=== PATIENT | male | born 1965 | race Caucasian/White ===

== ENCOUNTER 2023-04-11 15:00 | Outpatient (REF) | payer MEDICAID, SELFPAY ==
[2023-04-11 16:14] LABS: MANUAL DIFF FLAG NO
[2023-04-11 16:27] LABS: Estimated Average Glucose 97 mg/dL
[2023-04-11 16:30] LABS: Basophils Percent Auto 0.4 % (0-2); Eosinophils Absolute Auto 0.1 X10*3/uL (0.0-0.4); Eosinophils Percent Auto 1.3 % (0-4); Hematocrit 48.7 % (42.0-52.0); Hemoglobin 16.6 g/dl (14.0-18.0); Imm Gran Abs Auto 0.01 X10*3/uL (0.00-0.03); Imm Gran Pct Auto 0.1 % (0.0-0.4); Lymphocytes Absolute Auto 1.8 X10*3/uL (1.2-4.9); Lymphocytes Percent Auto 24.6 % (20-40); Mean Corpuscular HGB Conc 34.1 g/dl (31.0-36.0); Mean Corpuscular Hemoglobin 30.5 pg (27.0-33.0); Mean Corpuscular Volume 89.5 fL (80.0-98.0); Mean Platelet Volume 10.4 fL (9.4-12.4); Monocytes Absolute Auto 0.6 X10*3/uL (0.1-1.2); Monocytes Percent Auto 7.8 % (2-11); Neutrophils Absolute Auto 4.7 x10*3/uL (2.0-8.3); Neutrophils Percent Auto 65.8 % (45-73); Platelet Count 239 X10*3/uL (160-400); Red Blood Count 5.44 X10*6/uL (4.60-5.80); Red Cell Distribution Width 12.4 % (11.0-16.0); White Blood Count 7.1 X10*3/uL (4.8-10.8)
[2023-04-11 16:41] LABS: Alanine Aminotransferase 44 U/L (0-40); Albumin Level 4.6 g/dL (3.5-5.0); Alkaline Phosphatase 83 U/L (39-117); Anion Gap 13 (12-20); Aspartate Amino Transferase 24 U/L (5-37); Bilirubin Direct 0.2 mg/dL (0.0-0.5); Bilirubin Total 0.8 mg/dL (0.0-1.0); Blood Urea Nitrogen 19 mg/dL (9-16); Calcium 9.9 mg/dL (8.4-10.2); Carbon Dioxide 26 mmol/L (22-29); Chloride 107 mmol/L (96-108); Cholesterol 227 mg/dL (<200); Estimated Glomerular Filt Rate > 60; Glucose Random 100 mg/dL (60-115); HDL Cholesterol 40 mg/dL (>40); LDL Cholesterol Calculated 140 mg/dL (<100); Potassium 4.1 mmol/L (3.3-5.1); Sodium 142 mmol/L (135-145); Total Protein 7.5 g/dL (6.5-8.0); Triglycerides 236 mg/dL (<150)
[2023-04-12 08:12] LABS: HIV AB/AG Nonreactive (Nonreactive); HIV Num 1 0.05 S/CO (0.00-0.99); ~HepC Num1 0.04 S/CO (0.00-0.79); ~Hepatitis C Antibody Nonreactive (Nonreactive)
== END 2023-04-11 15:01 | disposition home or self-care (01) ==
LOC: HO.HHCL 15:00
PROVIDERS: Visit Provider Internal Medicine
DX: Z11.4 Encounter for screening for human immunodeficiency virus [HIV] (principal); I10 Essential (primary) hypertension; I25.10 Atherosclerotic heart disease of native coronary artery without angina pectoris
CPT/HCPCS: 36415; 80048; 80061; 80076; 83036; 85025; 86803; 87389

== ENCOUNTER 2023-04-12 10:31 | Outpatient (REF) | payer MEDICAID, SELFPAY ==
--- NOTE | ~2023-04-12 | XR_ITS ---
STUDY: Left hip, right knee INDICATION: Chronic left hip and right knee pain COMPARISON: None TECHNIQUE: 3 view left hip, 5 view right knee FINDINGS: Left hip: Advanced osteoarthritic changes identified left hip with [id number] appearance to the joint space, sclerosis, subchondral cysts, osteophytes and femoral head remodeling. Moderately severe right hip joint narrowing. No fracture or dislocation. Right knee: Tricompartment spurring, moderately severe medial, mild lateral knee and mild patellofemoral narrowings. No fracture, dislocation or joint effusion. XR/XR hip LT min 2V IMPRESSION: Advanced osteoarthritis left hip, moderately severe osteoarthritis right hip and right knee.
--- NOTE | ~2023-04-12 | XR_ITS ---
STUDY: Left hip, right knee INDICATION: Chronic left hip and right knee pain COMPARISON: None TECHNIQUE: 3 view left hip, 5 view right knee FINDINGS: Left hip: Advanced osteoarthritic changes identified left hip with awsq-[id number] appearance to the joint space, sclerosis, subchondral cysts, osteophytes and femoral head remodeling. Moderately severe right hip joint narrowing. No fracture or dislocation. Right knee: Tricompartment spurring, moderately severe medial, mild lateral knee and mild patellofemoral narrowings. No fracture, dislocation or joint effusion. XR/XR knee RT 4V IMPRESSION: Advanced osteoarthritis left hip, moderately severe osteoarthritis right hip and right knee.
== END 2023-04-12 10:32 | disposition home or self-care (01) ==
LOC: HO.HHCX 10:31
PROVIDERS: Visit Provider Internal Medicine
DX: M25.552 Pain in left hip (principal); M25.561 Pain in right knee; G89.29 Other chronic pain
CPT/HCPCS: 73502; 73564

== ENCOUNTER 2024-02-26 14:50 | Outpatient (REF) | payer MEDICAID, SELFPAY ==
[2024-02-26 16:42] LABS: Estimated Average Glucose 97 mg/dL; Hemoglobin A1C 118.3121 umol/L; Total Hemoglobin (HGBA1C) 3821.0084 umol/L
[2024-02-26 16:46] LABS: Alanine Aminotransferase 29 U/L (0-40); Albumin Level 4.3 g/dL (3.5-5.0); Alkaline Phosphatase 80 U/L (39-117); Anion Gap 13 (12-20); Aspartate Amino Transferase 22 U/L (5-37); Bilirubin Total 0.8 mg/dL (0.0-1.0); Blood Urea Nitrogen 16 mg/dL (9-16); Calcium 10.1 mg/dL (8.4-10.2); Carbon Dioxide 26 mmol/L (22-29); Chloride 107 mmol/L (96-108); Estimated Glomerular Filt Rate > 60; Glucose Random 130 mg/dL (60-115); Potassium 3.5 mmol/L (3.3-5.1); Sodium 142 mmol/L (135-145); Total Protein 7.3 g/dL (6.5-8.0)
== END 2024-02-26 14:51 | disposition home or self-care (01) ==
LOC: HO.HHCL 14:50
PROVIDERS: Visit Provider Internal Medicine
DX: I10 Essential (primary) hypertension (principal)
CPT/HCPCS: 36415; 80053; 83036

== ENCOUNTER 2024-07-06 09:13 | Outpatient (AMB) | payer MEDICAID, SELFPAY ==
--- NOTE | 2024-07-06 09:24 | MHC.OFFVIS ---
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 Hr Leader Required: Yes Hr Leader Services: Hr Leader Offered & Declined Hr Leader Name: will interpret Accompanied by: Spouse Allergies No Known Allergies [No Known Allergies*] Allergy (Unverified 02/18/20 19:35) none Allergy (Unknown, Uncoded 06/25/18 00:00) Medication List - Last Reconciled 07/06/24 by Timoteo Garza MD albuterol sulfate 90 mcg/actuation (Ventolin HFA) 2 puffs inhalation Q6H PRN aspirin (Adult Low Dose Aspirin) 81 mg PO DAILY atorvastatin 40 mg PO QPM clopidogrel (Plavix) 75 mg PO DAILY losartan 100 mg PO DAILY metoprolol succinate ER 50 mg PO DAILY HPI Comments Details: Iziaah is here for cardiac evaluation. According to a stent card brought by the patient, RCA stent from October of 2020. According to patient and family, he it was done for heart attack in [place]. Unclear, NSTEMI versus STEMI. He has not seen any medical transcription radiology after that. He continues to be on dual antiplatelet therapy. Otherwise, on beta-blockers, blood pressure medicines and statins. Within limits of his activity, generally feels okay. No clear-cut angina. He does feel some heart fluttering every so often. He states that he does travel back and forth between [place] and [place]. He would like to get checked out further. [facility] Medical History (Updated 07/06/24 @ 10:17 by Timoteo Garza MD) Atherosclerotic cardiovascular disease Surgical History (Updated 07/06/24 @ 09:30 by Mireya Kunz CMA) History of cardiac cath Family History (Updated 07/06/24 @ 09:32 by Mireya Kunz CMA) Father Pacemaker DM2 (diabetes mellitus, type 2) HTN (hypertension) Renal failure Paternal Grandmother HTN (hypertension) Mother Skin cancer Social History (Updated 07/06/24 @ 09:32 by Mireya Kunz CMA) Alcohol intake: current Alcohol intake frequency: holidays/special occasions only Patient Tobacco Use Status: Former Tobacco user Review of Systems Const Denies chills, Denies daytime sleepiness, Denies fatigue, Denies fever(s), Denies poor appetite, Denies snoring, Denies stops breathing during sleep, Denies weakness, Denies weight gain and Denies weight loss Eyes Denies loss of vision ENT Denies dizziness and Denies hearing loss Card Denies chest pain, Denies irregular heart rhythm, Denies claudication, Denies leg edema, Denies lightheadedness, Denies palpitations, Denies dyspnea on exertion and Denies orthopnea Resp Denies cough, Denies excessive phlegm production, Denies dyspnea on exertion, Denies snoring and Denies wheezing GI Denies abdominal pain, Denies hematochezia, Denies change in bowel habits, Denies nausea and Denies vomiting Denies dysuria and Denies urinary frequency Musc Denies arthralgias, Denies muscle weakness, Denies numbness and Denies other Skin/Breast Denies nail changes and Denies rash Neuro Denies Abnormal speech present, Denies dizziness, Denies loss of vision, Denies memory loss, Denies numbness and Denies weakness Psych Denies depression and Denies memory loss Endo Denies fatigue and Denies palpitations Vega/Lymph Denies easy bruising Aller/Immun Denies wheezing Physical Exam Vital Signs: Last Vital Signs Pulse 78 07/06/24 09:26 BP 158/60 H 07/06/24 09:26 BMI result Body Mass Index 30.1 Const General: comfortable and no acute distress Orientation/consciousness: patient oriented x3 HEENT Other: Unremarkable Head: Yes normal to inspection Neck Neck: Yes normal visual inspection Chest Chest palpation & inspection: normal inspection of the chest Resp Auscultation: clear to auscultation bilaterally Cardio Palpation: normal PMI Heart sounds: S1 normal heart sound present, S2 normal heart sound present, no gallops, no murmurs and no rubs GI Palpation (GI): Soft to palpation Back/Spine/Pelvis Other: unremarkable Skin General skin exam: no rashes or lesions noted Neuro General: patient oriented x3 Speech: No Abnormal speech present Extrem General: Yes normal to inspection Psych Mental Status: mental status grossly normal Office Procedures EKG Details: EKG with underlying sinus rhythm at 78/Min; cannot exclude old inferior infarct; [place] [address]-[id number], Complete Assessment & Plan Assessment & Plan (1) Atherosclerotic cardiovascular disease: Code(s): I25.10 - Atherosclerotic heart disease of [place] coronary artery without angina pectoris Category: Medical Plan: Per patient information, RCA stent from 2020. He is still on dual antiplatelet therapy. Unknown coronary anatomy. Plan on getting an echocardiogram/exercise stress perfusion imaging study for further evaluation. Most likely should be able to stop Plavix after he gets somewhat information. (2) Primary hypertension: Code(s): I10 - Essential (primary) hypertension Category: Medical Plan: Today's blood pressure seems high. Currently on metoprolol/losartan. May need more medications in the future. (3) Hyperlipidemia, unspecified: Code(s): E78.5 - Hyperlipidemia, unspecified Category: Medical Plan: Cholesterol is not well controlled. Currently on atorvastatin 40 mg daily. According to patient, dose was previously increased to 80 mg daily by PCP but he could not tolerate it. Overall, does not seem well controlled. Plan Patient states that he travels back and forth [place] and [facility]. Hoping he will keep his follow-up appointments, then meds will need to be optimized in due course. Discussed with significant other. Follow-up after the testing. Orders: Orders CA echo transthoracic complete Today I25.10 - Atherosclerotic heart disease of [place] coronary artery without angina pectoris NM cardiolite stress test Today I25.10 - Atherosclerotic heart disease of [place] coronary artery without angina pectoris, R07.2 - Precordial pain Lipid Panel Today E78.5 - Hyperlipidemia, unspecified, I25.10 - Atherosclerotic heart disease of [place] coronary artery without angina pectoris Liver Panel Today I25.10 - Atherosclerotic heart disease of [place] coronary artery without angina pectoris CA stress test Today I25.10 - Atherosclerotic heart disease of [place] coronary artery without angina pectoris, R07.2 - Precordial pain Coding Level of Care Code New Pt Level 4 (72954) Diagnoses Atherosclerotic cardiovascular disease I25.10 Primary hypertension I10 Hyperlipidemia, unspecified E78.5 CPT Codes EKG - CPT: 59793-[id number], Complete ([id number])
[2024-07-06 09:26] VITALS: BP 158/60; PULSE 78; BMI 30.1
--- OUTSIDE RECORDS SUMMARY | 2024-07-06 09:31 | XMS_ITS | Clinical Summary ---
Author Organization [employer] Address [address] [place] [address] Care Team Providers Care Ginger Farmer Name Role Phone Gilma Will MD Primary Care Provide r Allergies No known active allergies Medications albuterol (2.5 MG/3ML) 0.083% nebulizer solution Take 3 mL (2.5 mg) by nebulization every 6 (six) hours if needed for wheezing. 75 mL 3 Active aspirin 81 MG chewable tabletIndication s:Coronary artery disease involving [place] coronary artery of [place] heart without angina pectoris Chew 1 tablet (81 mg) Once per day. 30 tablet 4 025 Active albuterol 108 (90 Base) MCG/ACT inhalerIndicatio ns:Mild intermittent asthma without complication Inhale 2 puffs every 4 (four) hours if needed for wheezing. 18 g 4 025 Active fluticasone furoate (Arnuity Ellipta) 100 MCG/ACT inhalerIndicatio ns:Mild intermittent asthma without complication Inhale 1 puff Once per day. Rinse mouth with water after use to reduce aftertaste and incidence of candidiasis. Do not swallow. 30 each 3 4 Active metoprolol succinate XL (Toprol XL) 50 MG 24 hr tabletIndication s:Coronary artery disease involving [place] coronary artery of [place] heart without angina pectoris,Primary hypertension Take 1 tablet (50 mg) by mouth Once per day. Do not crush or chew. 30 tablet 4 025 Active losartan (Cozaar) 50 MG tabletIndication s:Coronary artery disease involving [place] coronary artery of [place] heart without angina pectoris,Primary hypertension Take 1 tablet (50 mg) by mouth Once per day. 30 tablet 4 025 Active atorvastatin (Lipitor) 80 MG tabletIndication s:Coronary artery disease involving [place] coronary artery of [place] heart without angina pectoris Take 1 tablet (80 mg) by mouth Once per day. 30 tablet 4 025 Active Active Problems Problem Noted Date Diagnosed Date Primary osteoarthritis of left hip 02/26/2024 Primary osteoarthritis of right knee 02/26/2024 Mild intermittent asthma without complication Primary hypertension 04/11/2023 Assessment & Plan (03/03/2024 1:38 PM EDT): Maintenance: BMP: ordered Lipid Panel: ordered ASCVD Risk: risk is now 10.2 he is on atorvastatin 80g daily, ASA 81mg daily - Aerobic exercise to reduce BP. Initial goal of 30 min walk 3-5x/week. Increase as tolerated. - low-sodium diet (goal: <2g/day) and heart healthy diet such as DASH to reduce BP and prevent ASCVD. - Home BP monitoring 1-2 x day with goal of <140/90. - Seek immediate medical attention for chest pain, palpitations, SOB, syncope, or sudden changes in mental status. - Do not change or discontinue current prescriptions without first consulting health care provider Assessment & Plan (04/11/2023 4:36 PM EST): Maintenance: BMP: ordered Lipid Panel: ordered ASCVD Risk: Calculate pending updated labs -I will prescribe losartan 50mg daily c/w metoprolol 50mg daily - Aerobic exercise to reduce BP. Initial goal of 30 min walk 3-5x/week. Increase as tolerated. - low-sodium diet (goal: <2g/day) and heart healthy diet such as DASH to reduce BP and prevent ASCVD. - Home BP monitoring 1-2 x day with goal of <140/90. - Seek immediate medical attention for chest pain, palpitations, SOB, syncope, or sudden changes in mental status. - Do not change or discontinue current prescriptions without first consulting health care provider Coronary artery disease invo lving [place] coronary artery of [place] heart without angina pectoris 04/11/2023 Chronic pain of right knee 04/11/2023 Assessment & Plan (04/11/2023 4:37 PM EST): Patient will be contacted with results Left hip pain 04/11/2023 Resolved Problems Problem Noted Date Diagnosed Date Resolved Date Right hip pain 04/11/2023 04/11/2023 Social History Tobacco Use Types Packs/Day Years Used Date Smoking Tobacco: Never Passive Smoke Exposure: Never Smokeless Tobacco: Never Tobacco Cessation:Counseling Given: Not Answered Depression Answer Date Recorded Patient Health Questionnaire-9 Score 0 04/11/2023 Patient Health Questionnaire-9 Score 0 04/11/2023 Last PHQ-9: Questionnaire Data Not on file 1 06/11/2022 Housing Stability Answer Date Recorded What is your housing situation today? I do not have housing (Staying with others, in a hotel, in a [place] [facility], living outside on the street, on a beach, in a car, or in a park 11/12/[address] you li ve. Do you have problems with any of the following? None of the above 11/12/2023 Food Insecurity Answer Date Recorded Within the past 12 months, y ou worried that your food would run out before you got money to buy more: Never True 04/02/2023 Within the past 12 months,th e food you bought just didn't last and you didn't have enough money to get more: Never True Transportation Answer Date Recorded In the past 12 months, has l ack of transportation kept you from medical appts, meetings, work or from getting things needed for daily living? No 04/02/2023 Utilities Answer Date Recorded In the past 12 months, has t he electric, gas, oil or water company threatened to shut off services in your home? No 04/02/2023 Depression Answer Date Recorded Patient Health Questionnaire-2 Score 0 04/11/2023 Sex and Gender Information Value Date Recorded Sex Assigned at Male 04/02/2022 10:34 AM EDT Legal Sex Male 10:34 AM EDT Gender Identity Male 04/02/2022 10:34 AM EDT Sexual Orientation Straight 04/02/2022 10 :34 AM EDT Last Filed Vital Signs Vital Sign Reading Time Taken Comments Blood Pressure 120/82 02/26/2024 1:55 PM EDT Pulse 72 02/26/2024 1:55 PM EDT Temperature 36.3 ??C (97.3 ??F) 02/26/2024 1:55 PM ED T Respiratory Rate 16 02/26/2024 1:55 PM EDT Oxygen Saturation 96% 04/11/2023 1:26 PM EST Inhaled Oxygen Concentration - - Weight 106 kg (233 lb 6.4 oz) 02/26/2024 1:55 PM EDT Height 188 cm (6' 2 ) 02/26/2024 1:55 PM EDT Body Mass Index 29.97 02/26/2024 1:55 PM EDT Plan of Treatment Health Maintenance Due Date Last Done Comments CT Colonography 1966 Colonoscopy 1966 Colorectal Cancer Screening 1966 FIT DNA/Cologuard 1966 FIT 1966 FOBT 1966 Sigmoidoscopy 1966 Alcohol/Substance Use Screening 1978 DTaP/Tdap/Td Vaccines (1 - Tdap) 1985 Hepatitis B Vaccines (1 of 3 - 19+ 3-dose series) 1985 Pneumococcal Vaccine: 50+ Years (1 of 2 - PCV) 1985 Zoster Vaccines (1 of 2) 02/10/2016 COVID-19 Vaccine ( - 2023-2 5 season) 2024 Influenza Vaccine (#1) 2024 Depression Screening 04/11/2024 04/11/2023, 04/11/2023 SDOH Screening 11/11/2024 11/12/2023 Tobacco Screening 02/25/2025 02/26/2024 Lipid Panel 04/11/2028 04/11/2023 RSV Patients and Patients Aged 60 years or older (1 - 1-dose 75+ series) 2041 HIV Screening Completed 04/11/2023 Hepatitis C Screening Completed 04/11/2023 HIB Vaccines Aged Out No longer eligi ble based on patient's age to complete this topic HPV Vaccines Aged Out No longer eligi ble based on patient's age to complete this topic Hepatitis A Vaccines Aged Out No long er eligible based on patient's age to complete this topic IPV Vaccines Aged Out No longer eligi ble based on patient's age to complete this topic Meningococcal Vaccine Aged Out No gin kaykay eligible based on patient's age to complete this topic RSV under 20 months Aged Out No longe r eligible based on patient's age to complete this topic Rotavirus Vaccines Aged Out No longer eligible based on patient's age to complete this topic Procedures Procedure Name Priority Date/Time Associated Diagnosis Comments HEPATITIS C AB W/REFL TO HCV RNA, QN, PCR Routine 04/11/2023 3:00 PM EST Primary hypertension HIV 1/2 ANTIGEN/ANTIBODY, FOURTH GENERATION W/RFL Routine 04/11/2023 3:00 PM EST Primary hypertension LIPID PANEL, STANDARD Routine 04/11/2023 3:00 PM EST Primary hypertension from Last 3 Months or Most Recently Relevant to Health Maintenance Results * Hepatitis C Antibody with Reflex to HCV, RNA, Quantitative, Real-Time PCR (04/11/2023 3:00 PM EST) Hepatitis C Antibody Nonreactive Nonreactive [facility] Comment:Antibodies to HCV no t detected; does not exclude early acuteHCV infection. Blood Venous blood specimen / Unknown 04/11/2023 3:00 PM EST 04/11/2023 4:12 PM EST us Gilma Wang MD LAB BLOOD ORDERABLES Final Result [facility] [address] [place] [phone] * HIV-1/2 Antigen and Antibodies, Fourth Generation, with Reflexes (04/11/2023 3:00 PM EST) HIV AB/AG Nonreactive Nonreactive [facility] Comment:HIV-1 p24 Ag and/or HIV-1/HIV-2 Ab not detected.A test result that is nonreactive does not exclude thepossibility of exposure to or infection with HIV-1 and/orHIV-2. Nonreactive results in this assay for individualswith prior exposure to HIV-1 and/or HIV-2 may be due toantigen and antibody levels that are below the limit ofdetection of this assay.The [employer] HIV Ag/Ab Combo assay result andsupplemental assay results should be interpreted inconjunction with the patient's clinical presentation,history and other laboratory results. If the results areinconsistent with clinical evidence, additional testing issuggested to confirm the result. Blood Venous blood specimen / Unknown 04/11/2023 3:00 PM EST 04/11/2023 4:12 PM EST us Gilma Wang MD LAB BLOOD ORDERABLES Final Result [facility] [address] [place] [phone] * (ABNORMAL) Lipid Panel, Standard (04/11/2023 3:00 PM EST) Triglycerides 236(H) <150 mg/dL [facility] Comment:Desirable Triglyceri de: less than 150 mg/dLBorderline High Triglyceride 150-199 mg/dLHigh Triglyceride: 200-499 mg/dLVery High Triglyceride: greater than or equal to 5OO mg/dL Cholesterol 227(H) <200 mg/dL [facility] Comment:Desirable Cholestero l: less than 200 mg/dLBorderline High Cholesterol: 200-239 mg/dLHigh Cholesterol: greater than 239 mg/dL LDL Cholesterol Calculated 140(H) <100 mg/dL [facility] Comment:Desirable LDL: less than 100 mg/dLNear Optimal/Above Optimal LDL: 110- 129 mg/dLBorderline High LDL: 130-159 mg/dLHigh LDL: 160-189 mg/dLVery High LDL: greater than or equal to 190 mg/dL HDL Cholesterol 40(L) >40 mg/dL [facility] Comment:Desirable HDL: great er than 40 mg/dL Note: This HDL assay may give artificially low results in patients with liver disease. Blood Venous blood specimen / Unknown 04/11/2023 3:00 PM EST 04/11/2023 4:12 PM EST Gilma Wang MD LAB BLOOD ORDERABLES Final Result [facility] [address] [place] [address] [phone] from Last 3 Months or Most Recently Relevant to Health Maintenance Insurance [facility] C3 Care Teams Ginger Farmer Relationship Specialty Start Date End Date Gilma Will MD [address] [place] [phone] PCP - General Internal Medicine 03/07/23
--- OUTSIDE RECORDS SUMMARY | 2024-07-06 09:31 | XMS_ITS | Encounter Summary ---
Author Organization [facility] [facility] Address [address] [place] [address] [address] [place] [address] Care Team Providers Care Window Glazier Helper Name Role Phone Gilma Will MD Primary Care Provide r Reason for Visit * Reason Onset Date Comments New Patient 01/23/2023 Encounter Details Date Type Department Care Team ([facility] st Contact Info) Description 01/23/2023 Telephone [facility] [address] [place] [address] Juancarlos Yu MD [address] [place] [address] New Patient Social History Tobacco Use Types Packs/Day Years Used Date Smoking Tobacco: Never Assessed Sex and Gender Information Value Date Recorded Sex Assigned at Male 04/02/2022 10:34 AM EDT Legal Sex Male 10:34 AM EDT Gender Identity Male 04/02/2022 10:34 AM EDT Sexual Orientation Straight 04/02/2022 10 :34 AM EDT documented as of this encounter Miscellaneous Notes * Telephone Encounter - Aneta Barr - 01/23/2023 3:18 PM EDT Pt has been transfer 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 EFFECTIVE SINCE 01/23/2023 documented in this encounter Plan of Treatment Not on file documented as of this encounter Visit Diagnoses Not on filedocumented in this encounter Care Teams Window Glazier Helper Relationship Specialty Start Date End Date Gilma Will MD [address] [place] [phone] PCP - General Internal Medicine 03/07/23 documented as of this encounter
== END 2024-07-06 10:01 | disposition home or self-care (01) ==
PROVIDERS: PCP Internal Medicine; Visit Provider Internal Medicine
DX: I25.10 Atherosclerotic heart disease of native coronary artery without angina pectoris (principal); I10 Essential (primary) hypertension; E78.5 Hyperlipidemia, unspecified
CPT/HCPCS: 93010; 99204

== ENCOUNTER → 2024-07-06 09:13 | Outpatient (BNVA) | payer MEDICAID, SELFPAY | PROVIDERS: PCP Internal Medicine; Visit Provider Internal Medicine | DX: I25.10 Atherosclerotic heart disease of native coronary artery without angina pectoris (principal); I10 Essential (primary) hypertension; E78.5 Hyperlipidemia, unspecified; R94.31 Abnormal electrocardiogram [ECG] [EKG] | CPT/HCPCS: 93005; 99202 ==

== ENCOUNTER 2024-07-08 12:56 | Outpatient (REF) | payer MEDICAID, SELFPAY ==
--- NOTE | ~2024-07-08 | XR_ITS ---
EXAMINATION: XR HIP, LEFT CLINICAL INFORMATION: M25.552 - Pain in left hip COMPARISON: None available. TECHNIQUE: Two views of the left hip. AP pelvis one view FINDINGS: AP pelvis: There is severe loss of left hip joint space and moderate loss of right hip joint space. The SI joints are symmetrical and normal. No bony abnormality seen involving the pelvis. Left hip: There is severe loss of left hip joint space with mild deformity of left humeral head and periapical spurring. There are subchondral cystic changes along the acetabulum and the femoral head. No visible acute fracture or dislocation seen. The soft tissues are normal. XR/XR hip LT min 2V IMPRESSION: Severe degenerative changes left hip joint. No visible acute fracture or dislocation seen. Electronically signed by: Bennie Nuno MD 08/04/2024 12:17 PM SAD[facility] WEBBER
--- OUTSIDE RECORDS SUMMARY | 2024-07-08 14:15 | XMS_ITS | Clinical Summary ---
Author Organization [employer] Address [address] [facility] 7t [place] [address] Care Team Providers Care Signal Integrity Engineer Name Role Phone Gilma Will MD Primary Care Provide r Allergies No known active allergies Medications albuterol (2.5 MG/3ML) 0.083% nebulizer solution Take 3 mL (2.5 mg) by nebulization every 6 (six) hours if needed for wheezing. 75 mL 3 Active aspirin 81 MG chewable tabletIndication s:Coronary artery disease involving [place] coronary artery of [place] heart without angina pectoris Chew 1 tablet [...] 24 hr tabletIndication s:Coronary artery disease involving [place] coronary artery of [place] heart without angina pectoris,Primary hypertension Take 1 tablet (50 mg) by mouth Once per day. Do not crush or chew. 30 tablet 4 025 Active losartan (Cozaar) 50 MG tabletIndication s:Coronary artery disease involving [place] coronary artery of [place] heart without angina pectoris,Primary hypertension Take 1 tablet (50 mg) by mouth Once per day. 30 tablet 4 025 Active atorvastatin (Lipitor) 80 MG tabletIndication s:Coronary artery disease involving [place] coronary artery of [place] heart without angina pectoris Take 1 tablet [...] care provider Coronary artery disease invo lving [place] coronary artery of [place] heart without angina pectoris 04/11/2023 Chronic pain [...] with others, in a hotel, in a halfway, living outside on the street, on a [...] PM EST) Hepatitis C Antibody Nonreactive Nonreactive [facility] Comment:Antibodies to HCV no t detected; does not exclude early acuteHCV infection. Blood Venous blood specimen / Unknown 04/11/2023 3:00 PM EST 04/11/2023 4:12 PM EST us Gilma Wang MD LAB BLOOD ORDERABLES Final Result [facility] [address] [place] [phone] * HIV-1/2 Antigen and Antibodies, Fourth Generation, with Reflexes (04/11/2023 3:00 PM EST) HIV AB/AG Nonreactive Nonreactive [facility] Comment:HIV-1 p24 Ag and/or HIV-1/HIV-2 Ab not detected.A test result that is nonreactive does not exclude thepossibility of exposure to or infection with HIV-1 and/orHIV-2. Nonreactive results in this assay for individualswith prior exposure to HIV-1 and/or HIV-2 may be due toantigen and antibody levels that are below the limit ofdetection of this assay.The [employer] HIV Ag/Ab Combo assay result andsupplemental assay results should be interpreted inconjunction with the patient's clinical presentation,history and other laboratory results. If the results areinconsistent with clinical evidence, additional testing issuggested to confirm the result. Blood Venous blood specimen / Unknown 04/11/2023 3:00 PM EST 04/11/2023 4:12 PM EST us Gilma Wang MD LAB BLOOD ORDERABLES Final Result [facility] [address] [place] [phone] * (ABNORMAL) Lipid Panel, Standard (04/11/2023 3:00 PM EST) Triglycerides 236(H) <150 mg/dL [facility] Comment:Desirable Triglyceri de: less than 150 mg/dLBorderline High Triglyceride 150-199 mg/dLHigh Triglyceride: 200-499 mg/dLVery High Triglyceride: greater than or equal to 5OO mg/dL Cholesterol 227(H) <200 mg/dL [facility] Comment:Desirable Cholestero l: less than 200 mg/dLBorderline High Cholesterol: 200-239 mg/dLHigh Cholesterol: greater than 239 mg/dL LDL Cholesterol Calculated 140(H) <100 mg/dL [facility] Comment:Desirable LDL: less than 100 mg/dLNear Optimal/Above Optimal LDL: 110- 129 mg/dLBorderline High LDL: 130-159 mg/dLHigh LDL: 160-189 mg/dLVery High LDL: greater than or equal to 190 mg/dL HDL Cholesterol 40(L) >40 mg/dL [facility] Comment:Desirable HDL: great er than 40 mg/dL Note: This HDL assay may give artificially low results in patients with liver disease. Blood Venous blood specimen / Unknown 04/11/2023 3:00 PM EST 04/11/2023 4:12 PM EST Gilma Wang MD LAB BLOOD ORDERABLES Final Result [facility] [address] [place] [phone] from Last 3 Months or Most Recently Relevant to Health Maintenance Insurance [facility] C3 Care Teams Signal Integrity Engineer Relationship Specialty Start Date End Date Gilma Will MD [address] [place] [phone] PCP - General Internal Medicine 03/07/23
--- OUTSIDE RECORDS SUMMARY | 2024-07-08 14:15 | XMS_ITS | Encounter Summary ---
Author Organization [employer] [facility] Address [address] [place] [address] [address] [place] [address] Care Team Providers Care Slate Picker Name Role Phone Gilma Will MD Primary Care Provide r Reason for Visit * Reason Onset Date Comments New Patient 01/23/2023 Encounter Details Date Type Department Care Team ([facility] st Contact Info) Description 01/23/2023 Telephone 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 EFFECTIVE SINCE 01/23/2023 documented in this encounter Plan of Treatment Not on file documented as of this encounter Visit Diagnoses Not on filedocumented in this encounter Care Teams Slate Picker Relationship Specialty Start Date End Date Gilma Will MD [address] [place] [address] PCP - General Internal Medicine 03/07/23 documented as of this encounter
== END 2024-07-08 12:57 | disposition home or self-care (01) ==
LOC: HO.HOSX 12:56
PROVIDERS: Visit Provider Physician Assistant
DX: M25.552 Pain in left hip (principal); M16.12 Unilateral primary osteoarthritis, left hip
CPT/HCPCS: 73502; 99212

== ENCOUNTER 2024-07-08 13:14 | Outpatient (AMB) | payer MEDICAID, SELFPAY ==
--- NOTE | 2024-07-08 13:29 | MHC.OFFVIS ---
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 NO hx of injury/surgery. Patient reports ongoing pain for about 3 years. He hasn't seen anyone for his hip. He mentions that his pain is all over his left hip he feels it in his groin area, on the lateral aspect of the hip and towards his lower back. Patient mentions that he is not able to walk for a far distance, using the stairs or standing. He has tried NSAIDs with no relief but stomach pain. 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 He states he has had pain in the left hip for several years. Pain originates in the groin. He states he does have limitations with walking and stairs. Unable to perform daily activities without pain and has decreased his quality of life due to this. He states he is back and forth from [place] and [place] to help care for his mom. He is leaving on July 14 to return to [place] and will be back in September. He did have a stent and is on plavix since 2020 [facility] Medical History (Updated 07/08/24 @ 13:46 by Ankita Dawson PA-C) Atherosclerotic cardiovascular disease Surgical History (Updated 07/06/24 @ 09:30 by Mireya Kunz CMA) History of cardiac cath Family History (Updated 07/06/24 @ 09:32 by Mireya Kunz, SPICE MILLER) Father Pacemaker DM2 (diabetes mellitus, type 2) HTN (hypertension) Renal failure Paternal Grandmother HTN (hypertension) Mother Skin cancer Social History (Updated 07/08/24 @ 13:45 by Jose Mina) Alcohol intake: current Alcohol intake frequency: holidays/special occasions only Patient Tobacco Use Status: Former Tobacco user Current occupational status: retired Current occupation: right hand dominant Review of Systems Const All systems reviewed & are unremarkable except as noted in HPI and below Physical Exam Vital Signs: BMI result Body Mass Index 30.0 Const General: cooperative and no acute distress Orientation/consciousness: patient oriented x3 Resp Effort & Inspection: normal respiratory effort and able to speak in complete sentences Cardio Peripheral pulses: Peripheral pulses 2+ throughout Neuro General: patient oriented x3 Extrem Other: Left hip normal to inspection. He ambulates with antalgic gait. He has limited range of motion of the left hip with discomfort. Neurovascularly intact. Results Reviewed Results Reviewed: Xrays were obtained in the office today and personally reviewed by me of the left hip show advanced OA of the left hip Assessment & Plan Assessment & Plan (1) Osteoarthritis of left hip: Code(s): M16.12 - Unilateral primary osteoarthritis, left hip Category: Medical Plan: We had a lengthy discussion about the extent of his OA and options available which include surgical intervention. He is interested in pursuing Total knee arthroplasty to improve his functional capacity and daily activities. I explained to him the procedure in detail, the hospital stay and details about post op rehab and precautions. He does understand all this and would like to move forward. I did put him in contact with our Nurse Navigator, Gemma who will set him up with pre op planning and book accordingly. All questions were answered. Orders: Orders XR hip LT min 2V Today M25.552 - Pain in left hip Coding Level of Care Code New Pt Level 3 (86350) Complex EM visit Add On G2211 Diagnoses Osteoarthritis of left hip M16.12
== END 2024-07-08 14:07 | disposition home or self-care (01) ==
PROVIDERS: PCP Internal Medicine; Visit Provider Physician Assistant
DX: M16.12 Unilateral primary osteoarthritis, left hip (principal)
CPT/HCPCS: 99203

== ENCOUNTER → 2024-07-08 13:29 | Outpatient (BNV) | payer MEDICAID, SELFPAY | PROVIDERS: Visit Provider Radiology Diagnostic Radiology | DX: M16.12 Unilateral primary osteoarthritis, left hip (principal) | CPT/HCPCS: 73502 ==

== ENCOUNTER 2024-09-14 14:36 | Outpatient (AMB) | payer MEDICAID, SELFPAY ==
--- NOTE | 2024-09-14 15:03 | A.OFFVIS_ITS ---
Vital Signs 09/14/24 15:03 Height 6 ft 2 in Weight 234 lb BMI 30.0 Intake Visit Reasons: OV - Left Hip OA - Discuss TUCKER Per TM Intake Note: Izaiah is a 59 year old male who presents today for a follow up of his left hip, at his last visit in July with Ankita Kearney she recommended a TUCKER. Today patient would like to obtain more information and move forward with surgery. Allergies No Known Allergies [No Known Allergies*] Allergy (Verified 07/08/24 13:44) none Allergy (Unknown, Uncoded 07/08/24 13:44) Unknown HPI HPI OV - Left Hip OA - Discuss TUCKER Per TM: Details: This is a 51-year-old gentleman with severe osteoarthritis of the left hip. He has been suffering for years and can not function at this point. 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 He is describes severe left hip pain. He has a difficult time getting into and out of vehicle. He can not rotate his left hip at all and he limps constantly. He has a severely diminished ambulatory capacity and feels like the quality of his life is severely diminished. He would like to work but can not. [facility] Medical History Atherosclerotic cardiovascular disease Surgical History History of cardiac cath Family History Father Pacemaker DM2 (diabetes mellitus, type 2) HTN (hypertension) Renal failure Paternal Grandmother HTN (hypertension) Mother Skin cancer Social History Alcohol intake: current Alcohol intake frequency: holidays/special occasions only Patient Tobacco Use Status: Former Tobacco user Current occupational status: retired Current occupation: right hand dominant Physical Exam Vital Signs: BMI result Body Mass Index 30.0 Extrem Other: Left hip with minimal to no internal rotation. Positive Trendelenburg antalgic gait. Results Reviewed Results Reviewed: I personally reviewed relevant radiographs. Severe left hip OA Assessment & Plan Assessment & Plan (1) Osteoarthritis of left hip: Code(s): M16.12 - Unilateral primary osteoarthritis, left hip Category: Medical Plan: This is a 59-year-old gentleman with osteoarthritis of the left hip. It is severe and he is severely affect. I recommend left hip replacement. I discussed this surgery with him in detail. I discussed the risks, benefits and alternatives including to, but not limited to, the risk of infection, fracture, dislocation, need for further surgery. He expressed understanding and we will proceed forward accordingly. Coding Level of Care Code Est Pt Level 4 (52012) Diagnoses Osteoarthritis of left hip M16.12
--- OUTSIDE RECORDS SUMMARY | 2024-09-14 17:02 | XMS_ITS | Clinical Summary ---
Author Organization [employer] Address [address] [facility] 7[address] [place] [address] Care Team Providers Care Commercial Escrow Officer Name Role Phone Gilma Will MD Primary Care Provide r Allergies No known active allergies Medications albuterol (2.5 MG/3ML) 0.083% nebulizer solution Take 3 mL (2.5 mg) by nebulization every 6 (six) hours if needed for wheezing. 75 mL 02/15/20 23 Active aspirin 81 MG chewable tabletIndications: Coronary artery disease involving [place] coronary artery of [place] heart without angina pectoris Chew 1 tablet (81 mg) Once per day. 30 tablet 02/26/20 24 025 Active albuterol 108 (90 Base) MCG/ACT inhalerIndications :Mild intermittent asthma without complication Inhale 2 puffs every 4 (four) hours if needed for wheezing. 18 g 02/26/20 24 025 Active fluticasone furoate (Arnuity Ellipta) 100 MCG/ACT inhalerIndications :Mild intermittent asthma without complication Inhale 1 puff Once per day. Rinse mouth with water after use to reduce aftertaste and incidence of candidiasis. Do not swallow. 30 each 3 02/26/20 24 Active metoprolol succinate XL (Toprol XL) 50 MG 24 hr tabletIndications: Coronary artery disease involving [place] coronary artery of [place] heart without angina pectoris,Primary hypertension Take 1 tablet (50 mg) by mouth Once per day. Do not crush or chew. 30 tablet 02/26/20 025 Active losartan (Cozaar) 50 MG tabletIndications: Coronary artery disease involving [place] coronary artery of [place] heart without angina pectoris,Primary hypertension Take 1 tablet (50 mg) by mouth Once per day. 30 tablet 02/26/20 025 Active atorvastatin (Lipitor) 80 MG tabletIndications: Coronary artery disease involving [place] coronary artery of [place] heart without angina pectoris Take 1 tablet (80 mg) by mouth Once per day. 30 tablet 02/26/20 025 Active acetaminophen (Tylenol 8 Hour) 650 MG ER tabletIndications: Primary osteoarthritis of left hip,Primary osteoarthritis of right knee TAKE 1 TABLET BY MOUTH EVERY 8 HOURS NEEDED FOR MILD PAIN, DO NOT BREAK, CRUSH, DISSOLVE OR CHEW 60 tablet 1 07/21/19 Active Active Problems Problem Noted Date Diagnosed [...] care provider Coronary artery disease invo lving [place] coronary artery of [place] heart without angina pectoris 04/11/2023 Chronic pain of right knee 04/11/2023 Assessment & Plan (04/11/2023 4:37 PM EST): Patient will be contacted with results Left hip pain 04/11/2023 Resolved Problems Problem Noted Date Diagnosed Date Resolved Date Right hip pain 04/11/2023 04/11/2023 Encounters Date Type Department Care Team Description 08/14/2024 Population Health Risk Score [facility] () Department [address] [place] [address] [phone] Provider, Population Health Generic 07/19/2024 Refill [facility] MED[facility]INE [address] [place] [address] Gilma Will MD Primary osteoarthritis of left hip; Primary osteoarthritis of right knee from Last 3 Months Social History Tobacco Use Types Packs/Day Years [...] with others, in a hotel, in a long-term, living outside on the street, on a [...] PM EST) Hepatitis C Antibody Nonreactive Nonreactive [facility] Comment:Antibodies to HCV no t detected; does not exclude early acuteHCV infection. Blood Venous blood specimen / Unknown 04/11/2023 3:00 PM EST 04/11/2023 4:12 PM EST us Gilma Wang MD LAB BLOOD ORDERABLES Final Result Performing Organization Address City/[facility]/ZIP Co de Phone Number [facility] [address] [place] [phone] * HIV-1/2 Antigen and Antibodies, Fourth Generation, with Reflexes (04/11/2023 3:00 PM EST) HIV AB/AG Nonreactive Nonreactive [facility] Comment:HIV-1 p24 Ag and/or HIV-1/HIV-2 Ab not detected.A test result that is nonreactive does not exclude thepossibility of exposure to or infection with HIV-1 and/orHIV-2. Nonreactive results in this assay for individualswith prior exposure to HIV-1 and/or HIV-2 may be due toantigen and antibody levels that are below the limit ofdetection of this assay.The [employer] HIV Ag/Ab Combo assay result andsupplemental assay results should be interpreted inconjunction with the patient's clinical presentation,history and other laboratory results. If the results areinconsistent with clinical evidence, additional testing issuggested to confirm the result. Blood Venous blood specimen / Unknown 04/11/2023 3:00 PM EST 04/11/2023 4:12 PM EST us Gilma Wang MD LAB BLOOD ORDERABLES Final Result Performing Organization Address [facility]/ZIP Co de Phone Number [facility] [address] [place] [phone] * (ABNORMAL) Lipid Panel, Standard (04/11/2023 3:00 PM EST) Triglycerides 236(H) <150 mg/dL [facility] Comment:Desirable Triglyceri de: less than 150 mg/dLBorderline High Triglyceride 150-199 mg/dLHigh Triglyceride: 200-499 mg/dLVery High Triglyceride: greater than or equal to 5OO mg/dL Cholesterol 227(H) <200 mg/dL [facility] Comment:Desirable Cholestero l: less than 200 mg/dLBorderline High Cholesterol: 200-239 mg/dLHigh Cholesterol: greater than 239 mg/dL LDL Cholesterol Calculated 140(H) <100 mg/dL [facility] Comment:Desirable LDL: less than 100 mg/dLNear Optimal/Above Optimal LDL: 110- 129 mg/dLBorderline High LDL: 130-159 mg/dLHigh LDL: 160-189 mg/dLVery High LDL: greater than or equal to 190 mg/dL HDL Cholesterol 40(L) >40 mg/dL [facility] Comment:Desirable HDL: great er than 40 mg/dL Note: This HDL assay may give artificially low results in patients with liver disease. Blood Venous blood specimen / Unknown 04/11/2023 3:00 PM EST 04/11/2023 4:12 PM EST Gilma Wang MD LAB BLOOD ORDERABLES Final Result [facility] [address] [place] [phone] from Last 3 Months or Most Recently Relevant to Health Maintenance Insurance [facility] C3 Care Teams Commercial Escrow Officer Relationship Specialty Start Date End Date Gilma Will MD [address] [place] [phone] PCP - General Internal Medicine 03/07/23
--- OUTSIDE RECORDS SUMMARY | 2024-09-14 17:02 | XMS_ITS | Encounter Summary ---
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
== END 2024-09-14 15:58 | disposition home or self-care (01) ==
LOC: HO.HOS 14:36
PROVIDERS: Visit Provider Orthopaedic Surgery
DX: M16.12 Unilateral primary osteoarthritis, left hip (principal)
CPT/HCPCS: 99214

== ENCOUNTER → 2024-09-14 14:36 | Outpatient (BNVA) | payer MEDICAID, SELFPAY | PROVIDERS: Visit Provider Orthopaedic Surgery | DX: M16.12 Unilateral primary osteoarthritis, left hip (principal) | CPT/HCPCS: 99212 ==